=== PATIENT | female | born 1955 | race Caucasian/White ===

== ENCOUNTER 2018-01-09 09:53 | Inpatient (IN) | payer OTHER ==
--- NOTE | 2018-01-16 08:12 | HP ---
HISTORY OF PRESENT ILLNESS: The patient is a 62-year-old female with a long history of problems with both knees, left greater than right. She has developed progressive degenerative arthritis of the le ft knee, which has persisted despite rest, restriction of activities, anti-inflammatory medications, cortisone injections, attempted weight loss and lifestyle adjustments. The pain is now interfering w ith day-to-day activities including walking, getting dressed and sleeping. PAST MEDICAL HISTORY: The patient underwent unic[place]partmental [place] ago, is suffering from problems and is developing degenerative arthritis in the latera l compartment and will probably require revision in the future, but her left knee is bothering her mo re now. She also has a history of anxiety, arthritis, high cholesterol, chronic pain, depression, hi gh blood pressure, thyroid disease. CURRENT MEDICATIONS: Include paroxetine, benazepril, atenolol, Lasix, meloxicam, metformin, levothyr oxine, lansoprazole, quetiapine. ALLERGIES: She has no known allergies. FAMILY HISTORY/SOCIAL HISTORY/REVIEW OF SYSTEMS: Otherwise unremarkable. PHYSICAL EXAMINATION: GENERAL: Reveals a healthy heavyset female. HEENT: Unremarkable. NECK: Supple. CHEST: Clear. HEART: Regular rate and rhythm. ABDOMEN: Soft, nontender. PELVIC/RECTAL/BREAST: Exams are deferred. EXTREMITIES: Pertinent findings are related to her knees. Examination of the left knee reveals no d efinite effusion. There is no distinct deformity. There is tenderness and crepitus over the medial joint line. Range of motion is 0-115 degrees. There is no instability. Neurovascular exam is intac t. Pulses are trace. There is a left antalgic gait. Neurovascular exam is intact. Examination of the right knee reveals no effusion, normal alignment. There is a healed medial incision. There is t enderness over the medial and especially the lateral joint lines. Range of motion is 0-115 degrees. There is no definite instability. Neurovascular exam is intact. LABORATORY AND X-RAY FINDINGS: X-rays of the left knee reveal severe tricompartmental degenerative a rthritis with bone on bone collapse medially. X-rays of the right knee reveal medial unicompartmental knee replacement in satisfactory alignment, b ut there is significant narrowing laterally. IMPRESSION: 1. Degenerative arthritis, left knee. 2. Status post unicompartmental knee replacement, right knee, with progression of degenerative arthr itis, lateral compartment. 3. History of hypertension. 4. History of thyroid replacement. 5. History of obesity. PLAN: Left total knee replacement. She will probably eventually require revision right total knee r eplacement. The nature of the surgery, length of recovery, and potential complications such as infec tion, loss of motion, incomplete relief, delayed wound healing, neurovascular injury, thromboembolic phenomena, possible transfusion, and need for revision have been discussed in detail.
[2018-01-20] MEDS ORDERED: CEFAZOLIN 3 GM, Admixture Fee 1 EACH in Sodium Chloride 0.9% 100 ML IVPB SCH (06:15)
[2018-01-20] MEDS ORDERED: Lidocaine 1% (PF) 30 ML VIAL ONE (06:30)
[2018-01-20] MEDS ORDERED: Midazolam HCl 2 mg/2 ml Vial ONE (06:30)
[2018-01-20] MEDS ORDERED: Fentanyl 100 MCG/2 ML VIAL ONE ×2 (06:30→09:20)
[2018-01-20] MEDS ORDERED: Sodium Chloride 0.9% 100 ML ONE (06:30)
[2018-01-20] MEDS ORDERED: Bupivacaine/Epinephrine 0.25% 30 ML VIAL ONE (06:45)
[2018-01-20] MEDS ORDERED: Albuterol Sulfate 2.5 mg/3 ml Neb ONE (06:48)
[2018-01-20] MEDS ORDERED: Ropivacaine HCl/PF 250 ML in Premix Bag 1 BAG NERVE BLCK SCH (07:13)
[2018-01-20] MEDS ORDERED: traMADol HCl 50 MG TAB PO PRN ×3 (07:13→09:56)
[2018-01-20] MEDS ORDERED: Ondansetron PF 4 MG/2 ML Vial IVP PRN ×2 (07:13→09:56)
[2018-01-20] MEDS ORDERED: Zolpidem Tartrate 5 MG TAB PO PRN ×2 (07:13→09:56)
[2018-01-20] MEDS ORDERED: HYDROcodone/Acetaminophen 10/325 mg Tablet PO PRN ×3 (07:13→09:56)
[2018-01-20] MEDS ORDERED: Promethazine HCl 25 MG/ML VIAL IM PRN ×2 (07:13→08:02)
[2018-01-20] MEDS ORDERED: Fentanyl 100 MCG/2 ML VIAL IV PRN (07:14)
[2018-01-20] MEDS ORDERED: Morphine 10 MG/ML VIAL ONE (07:48)
[2018-01-20] MEDS ORDERED: PACU-Morphine 4MG/ML VIAL SLOW IVP PRN (08:02)
[2018-01-20] MEDS ORDERED: Promethazine HCl 25 MG/ML VIAL SLOW IVP PRN ×2 (08:02→09:56)
[2018-01-20] MEDS ORDERED: Ondansetron HCl/PF 4 MG/2 ML Vial IVP PRN (08:02)
[2018-01-20] MEDS ORDERED: Tranexamic Acid 1,000 MG in Sodium Chloride 0.9% 100 ML IVPB SCH ×2 (09:15→09:56)
--- NOTE | 2018-01-20 09:47 | OP ---
DATE OF PROCEDURE: 01/20/2018 SURGEON: Gregorio Shafer M.D. MANAGER SKILLED: SEAN Mejía. ANESTHESIA: General plus adductor canal and sciatic nerve blocks. PREOPERATIVE DIAGNOSIS: Degenerative arthritis, left knee. POSTOPERATIVE DIAGNOSIS: Degenerative arthritis, left knee. PROCEDURES: Left total knee replacement with computer-assisted navigation with cemented Triathlon co mponents (#4 femoral component, #4 primary tibial baseplate with 11 mm CS plastic insert, and A29 all plastic patellar component). NARRATIVE REPORT: After satisfactory anesthesia was induced in supine position, sequential compressi on device was placed on the non-operative leg throughout the procedure. The left leg was then preppe d and draped in routine sterile fashion. The left leg was elevated, exsanguinated with Esmarch almendarez ge and the tourniquet inflated to 350 mmHg. A gently curved medial parapatellar incision was made an d carried down to subcutaneous tissues. Bleeding points controlled with Bovie cautery. Medial parap atellar arthrotomy was performed, patella dislocated laterally and portions of the fat pad were excis ed for exposure. There was marked degenerative arthritis of the knee, especially medially, with larg e areas of exposed bone. Meniscal remnants and osteophytes removed. Using the appropriate guides an d the Object[employer] pinless navigation system, the distal femoral and proximal tibial articular surfaces we re excised with an oscillating saw to accept the trial components. It was felt that #4 femoral compo nent and #4 tibial baseplate with 11 mm CS plastic insert gave appropriate size, fit, stability, and correction of the preoperative deformity. The patellar articular surface was excised to accept an al l plastic A29 patellar component. There was a good range of motion, good patellar tracking. The tri al components removed. The knee was copiously irrigated with pulsatile lavage and bony surfaces thor oughly cleaned and dried. The permanent components were then cemented in a single stage using 1 pack age of cement premixed with 1 gram of tobramycin powder. Excess cement was removed. There was again good fit and stability of the components. The wound was again copiously irrigated. The skin was in filtrated with 30 mL of 0.25% Marcaine with epinephrine. The medial retinaculum and quadriceps mecha nism was closed with interrupted #2 Vicryl and a running #2 Quill. Subcutaneous tissues were closed with a running 0 Quill suture and the skin closed with running subcuticular 3-0 Monoderm and SurgiSea l skin adhesive. A sterile bulky compressive dressing was applied. The tourniquet deflated after 73 minutes. The foot promptly pinked up. Sequential compression device was applied to the operated le g and she was awakened, taken to recovery room in stable condition. There were no apparent intraoper ative complications. The estimated blood loss was less than 100 mL.
[2018-01-20] MEDS ORDERED: diphenhydrAMINE 25 MG CAP PO PRN (09:56)
[2018-01-20] MEDS ORDERED: Fentanyl 100 MCG/2 ML VIAL SLOW IVP PRN ×2 (09:56)
[2018-01-20] MEDS ORDERED: Acetaminophen 325 MG TAB PO PRN (09:56)
[2018-01-20] MEDS ORDERED: CEFAZOLIN/Water 2 GM/20 ML SYRINGE SLOW IVP SCH (09:56)
--- NOTE | 2018-01-20 09:56 | RAD ---
LEFT KNEE TWO VIEWS: INDICATIONS: Postoperative evaluation. Total knee replacement. FINDINGS: There is no acute hardware complication with regard to left knee arthroplasty. Expected post procedu ral findings are seen within the soft tissues. IMPRESSION: Postoperative left knee without acute hardware complication. POS: [facility]
[2018-01-20 10:17] VITALS: BMI 46.9
[2018-01-20] MEDS: Albuterol Sulfate 2.5 mg/0.5 ml Neb NEB SCH (10:33)
[2018-01-20] MEDS ORDERED: PARoxetine 20 MG TAB PO SCH (11:00)
[2018-01-20] MEDS ORDERED: Levothyroxine Sodium 125 MCG TAB PO SCH (11:00)
[2018-01-20] MEDS ORDERED: Aspirin 81 mg Enteric Coated Tablet PO SCH (11:00)
[2018-01-20] MEDS ORDERED: Atenolol 50 MG TAB PO SCH (11:00)
[2018-01-20] MEDS: Furosemide 20 MG TAB PO SCH ×3 (11:25→21:01)
[2018-01-20] MEDS: Sodium Chloride 0.9% 1,000 ML IV SCH ×2 (11:34→11:35)
[2018-01-20] MEDS: Ketorolac Tromethamine 30 MG/ML VIAL IVP SCH ×3 (11:34→23:47)
[2018-01-20] MEDS ORDERED: Bupivacaine 0.25% HCL 30 ML VIAL ONE (13:42)
[2018-01-20] MEDS ORDERED: Ropivacaine 0.5% HCl/PF (150 MG/30 ML VIAL) ONE (13:42)
[2018-01-20] MEDS: HYDROcodone/Acetaminophen 10/325 mg Tablet PO PRN ×2 (13:53→21:08)
[2018-01-20] MEDS ORDERED: Ketorolac Tromethamine 30 MG/ML VIAL IVP SCH (14:00)
[2018-01-20] MEDS ORDERED: Ondansetron PF 4 MG/2 ML Vial ONE (14:55)
[2018-01-20] MEDS ORDERED: Lidocaine 1% PF 5 ML VIAL ONE (14:55)
[2018-01-20] MEDS ORDERED: ePHEDrine/0.9% NaCl/PF SYRINGE 50 mg/10 ml ONE (14:55)
[2018-01-20] MEDS ORDERED: PROPOFOL 200 MG/20 ML VIAL ONE (14:55)
[2018-01-20] MEDS ORDERED: metFORMIN 500 MG TAB PO SCH (17:00)
[2018-01-20] MEDS: CEFAZOLIN 3 GM, Admixture Fee 1 EACH in Sodium Chloride 0.9% 100 ML IVPB SCH ×2 (17:18→23:47)
--- NOTE | 2018-01-20 17:48 | PDOC.PN ---
- Subjective Encounter Start Date: 01/20/18 Encounter Start Time: 15:00 Subjective: pt up in bed no complains - Objective Vital Signs & Weight: Vital Signs (12 hours) Temp Pulse Resp BP Pulse Ox 01/20/18 14:25 98.6 F 71 16 129/53 L 99 01/20/18 11:25 98.5 F 65 16 133/78 99 01/20/18 11:24 69 01/20/18 09:55 98.3 F 69 16 147/66 H 94 L Weight Weight 282 lb I&O: 01/19/18 01/20/18 01/21/18 06:59 06:59 06:59 Intake Total 1640 Output Total 550 Balance 1090 Phys Exam - Physical Examination Neck: no nodes, no JVD, supple, full ROM Respiratory: no wheezing, no rales, no rhonchi, wheezing present, clear to auscultation bilateral Cardiovascular: RRR, no significant murmur, no rub, gallop, irregular Gastrointestinal: soft, non-tender, no distention, positive bowel sounds Musculoskeletal: no edema, pulses present, edema present left knee cassidy wrap Dx/Plan (1) Hypothyroid Code(s): E03.9 - HYPOTHYROIDISM, UNSPECIFIED Status: Acute (2) Depression Code(s): F32.9 - MAJOR DEPRESSIVE DISORDER, SINGLE EPISODE, UNSPECIFIED Status : Acute (3) HTN (hypertension) Code(s): I10 - ESSENTIAL (PRIMARY) HYPERTENSION Status: Acute - Plan pt states she takes metformin for weight loss not for DM -: will continue home medication * . Review of Systems - Review of Systems Respiratory: negative: Cough, Dry, Shortness of Breath, Hemoptysis, SOB with Excertion, Pleuritic Pain, Sputum, Wheezing Cardiovascular: negative: chest pain, palpitations, orthopnea, paroxysmal nocturnal dyspnea, edema, light headedness, other Gastrointestinal: negative: Nausea, Vomiting, Abdominal Pain, Diarrhea, Constipation, Melena, Hematochezia, Other Genitourinary: negative: Dysuria, Frequency, Incontinence, Hematuria, Retention , Other - Medications/Allergies Allergies/Adverse Reactions: Allergies Allergy/AdvReac Type Severity Reaction Status Date / Time No Known Allergies Allergy Verified 01/09/18 12:54 Medications: Current Medications Acetaminophen (Tylenol) 650 mg PO Q4H PRN PRN Reason: FIERRO/ T > 101F; Mild Pain (1-3) Hydrocodone Bitart/Acetaminophen ([place] 10/325) 1 tab PO Q4H PRN PRN Reason: Pain (1-3) Hydrocodone Bitart/Acetaminophen ([place] 10/325) 2 tab PO Q4H PRN PRN Reason: PAIN (4-6) Last Admin: 01/20/18 13:53 Dose: 2 tab Albuterol Sulfate (Ventolin) 2.5 mg NEB NOW [facility] Stop: 01/21/18 10:00 Last Admin: 01/20/18 10:33 Dose: Not Given Aspirin (Ecotrin) 81 mg PO BID [facility] Atenolol (Tenormin) 50 mg PO QAM [facility] Benazepril HCl (Lotensin) 20 mg PO QAM [facility] Diphenhydramine HCl (Benadryl) 25 mg PO Q6H PRN PRN Reason: Itching Fentanyl (Sublimaze) 50 mcg IV Q1H PRN PRN Reason: BT PAIN Ferrous Gluconate (Fergon) 324 mg PO BID-[facility] Furosemide (Lasix) 20 mg PO BID [facility] Ropivacaine 250 ml/ Device 250 mls @ 0 mls/hr NERVE BLCK INF [facility] Sodium Chloride (Normal Saline 0.9%) 1,000 mls @ 100 mls/hr IV .Q10H [facility] Last Admin: 01/20/18 11:35 Dose: Not Given Vancomycin HCl 2 gm/ Sodium (Chloride) 500 mls @ 250 mls/hr IVPB 2000 [facility] Stop: 01/20/18 21:59 Cefazolin Sodium 3 gm/Miscellaneous Medication 1 each/ Sodium Chloride 100 mls @ 200 mls/hr IVPB 0700,1500,2300 [facility] Stop: 01/20/18 23:29 Last Admin: 01/20/18 17:18 Dose: 100 mls Iron/Minerals/Multivitamins (Theragran M) 1 tab PO DAILY [facility] Ketorolac Tromethamine (Toradol) 30 mg IVP Q6HR [facility] Stop: 01/22/18 06:01 Last Admin: 01/20/18 17:16 Dose: 30 mg Levothyroxine Sodium (Synthroid) 125 mcg PO 0600 [facility] Metformin HCl (Glucophage) 500 mg PO QPM-[facility] Last Admin: 01/20/18 17:16 Dose: 500 mg Ondansetron HCl (Zofran) 4 mg IVP Q6H PRN PRN Reason: Nausea/Vomiting Pantoprazole Sodium (Protonix) 40 mg PO HS [facility] Paroxetine HCl (Paxil) 40 mg PO QAM [facility] Promethazine HCl (Phenergan) 12.5 mg IM Q4H PRN PRN Reason: Nausea Promethazine HCl (Phenergan) 12.5 mg SLOW IVP Q4H PRN PRN Reason: Nausea/Vomiting Quetiapine Fumarate (Seroquel Xr) 50 mg PO HS [facility] Senna/Docusate Sodium (Senokot S) 2 tab PO BID [facility] Sodium Chloride (Flush - Normal Saline) 10 ml IVF PRN PRN PRN Reason: Saline Flush Tramadol HCl (Ultram) 50 mg PO Q6H PRN PRN Reason: Mild Pain (1-3) Tramadol HCl (Ultram) 100 mg PO Q6H PRN PRN Reason: Moderate Pain 4-6 Zolpidem Tartrate (Ambien) 5 mg PO HSPRN PRN PRN Reason: Insomnia
[2018-01-20] MEDS ORDERED: QUEtiapine Fumarate ER 50 MG TAB PO SCH (21:00)
[2018-01-20] MEDS: Aspirin 81 mg Enteric Coated Tablet PO SCH (21:01)
[2018-01-21] MEDS: Sodium Chloride 0.9% 1,000 ML IV SCH ×2 (02:33→12:52)
[2018-01-21 05:32] LABS: Hemoglobin 12.8 g/dL (12.0-16.0); Mean Corpuscular HGB CONC 31.5 g/dL (32.0-36.0); Mean Corpuscular Volume 92.1 fL (78.0-98.0); Platelet Count 160 thou/uL (130-400); Red Blood Cell (RBC) Count 4.42 mill/uL (4.20-5.40); White Blood Cell (WBC) Count 8.4 thou/uL (4.8-10.8)
[2018-01-21] MEDS: Ketorolac Tromethamine 30 MG/ML VIAL IVP SCH ×2 (05:39→12:50)
[2018-01-21] MEDS: HYDROcodone/Acetaminophen 10/325 mg Tablet PO PRN ×3 (05:54→13:30)
[2018-01-21] MEDS ORDERED: Levothyroxine Sodium 125 MCG TAB PO SCH (06:00)
[2018-01-21] MEDS: Albuterol Sulfate 2.5 mg/0.5 ml Neb NEB SCH (07:42)
[2018-01-21] MEDS ORDERED: Ferrous Gluconate 324 MG TAB PO SCH (08:00)
[2018-01-21] MEDS: Furosemide 20 MG TAB PO SCH (08:23)
[2018-01-21] MEDS: Aspirin 81 mg Enteric Coated Tablet PO SCH (08:23)
[2018-01-21] MEDS ORDERED: Atenolol 50 MG TAB PO SCH (09:00)
[2018-01-21] MEDS ORDERED: Multivitamin W/ Minerals 1 TAB PO SCH (09:00)
[2018-01-21] MEDS ORDERED: Senokot S 8.6-50 MG TAB PO SCH (09:00)
[2018-01-21] MEDS ORDERED: PARoxetine 20 MG TAB PO SCH (09:00)
[2018-01-21] MEDS ORDERED: NICOTINE POLACRILEX 4 MG SL SCH (09:00)
[2018-01-21] MEDS ORDERED: Ropivacaine 0.2% 550 ML 550 ML NERVE BLCK SCH (10:42)
[2018-01-21 12:47] VITALS: BP 148/82; TEMP 98.4
== END 2018-01-21 13:38 | disposition home or self-care (01) | DRG 470 ==
LOC: SURG A 01-20 05:26 → SJJU 01-20 10:03
PROVIDERS: ADMIT Orthopaedic Surgery; ATTEND Orthopaedic Surgery
PROC: 0SRD0J9 Replacement of Left Knee Joint with Synthetic Substitute, Cemented, Open Approach (ICD-10-PCS; principal; 2018-01-20)
DX: M17.12 Unilateral primary osteoarthritis, left knee (principal); Z68.42 Body mass index [BMI] 45.0-49.9, adult; I10 Essential (primary) hypertension; E03.9 Hypothyroidism, unspecified; F32.9 Major depressive disorder, single episode, unspecified; E66.9 Obesity, unspecified
CPT/HCPCS: 36415; 85027; 86850; 86900; 86901; A4306; C1713; C1776; G8978-GP-CK; G8979-GP-CI; J0690; J1885; J2001; J2250; J2270; J2405; J2704; J2795; J3010; J3370; J7050; J7611; S0020

== ENCOUNTER 2018-01-09 12:24 | Outpatient (CLI) | payer OTHER ==
[2018-01-09 14:32] LABS: Bilirubin Negative (Negative); Blood, Urine Negative (Negative); Clarity CLEAR (Clear); Glucose, Urine (Dipstick) Negative (Negative); Leukocyte Small (Negative); Nitrite Negative (Negative); Protein, Urine (Dipstick) Negative (Neg-Trace); Specific Gravity, Urine 1.005 (1.002-1.036); Urobilinogen 0.2 mg/dL (0.2-1.0)
[2018-01-09 14:37] LABS: #Basophils 0.1 thou/uL (0.0-0.2); #Eosinphils 0.2 thou/uL (0.0-0.7); #Lymphocytes 2.2 thou/uL (1.20-3.40); #Monocytes 0.7 thou/uL (0.11-0.59); #Neutrophils 8.7 thou/uL (1.40-6.50); %Basophils 0.7 % (0.0-1.0); %Eosinophils 1.9 % (0.0-10.0); %Lymphocytes 18.7 % (21.0-51.0); %Neutrophils 72.8 % (42.0-75.0); Hemoglobin 15.3 g/dL (12.0-16.0); Mean Corpuscular HGB CONC 31.6 g/dL (32.0-36.0); Mean Corpuscular Volume 91.9 fL (78.0-98.0); Mean Platelet Volume 8.6 fL (7.4-10.4); Platelet Count 256 thou/uL (130-400); RBC Distribution Width 13.2 % (11.5-14.5); Red Blood Cell (RBC) Count 5.26 mill/uL (4.20-5.40); White Blood Cell (WBC) Count 11.9 thou/uL (4.8-10.8)
[2018-01-09 14:40] LABS: INR-International Normal Ratio 0.9; PTT 29.1 SEC (22.9-36.1); Prothrombin Time 12.5 SEC (12.0-14.7)
[2018-01-09 14:41] LABS: RBC/HPF None Seen HPF (0-3); Squamous Epithelial 0-3 HPF (0-3); WBC/HPF 0-3 HPF (0-3)
[2018-01-09 14:42] LABS: Bacteria/HPF None Seen HPF (None Seen); Hyaline Casts/LPF NONE SEEN LPF (0-3 Hyaline)
[2018-01-09 14:58] LABS: Anion Gap 10 mmol/L (10-20); BUN (Urea Nitrogen) 15 mg/dL (9.8-20.1); Calc. Creatinine Clearance 0 mL/min (70-130); Calcium 9.9 mg/dL (7.8-10.44); Carbon Dioxide 32 mmol/L (22-29); Chloride 103 mmol/L (98-107); Estimated GFR-MDRD 66; Glucose 108 mg/dL (70-105); Potassium 3.6 mmol/L (3.5-5.1); Sodium 141 mmol/L (136-145)
--- NOTE | 2018-01-09 17:24 | EKG ---
Test Reason : Blood Pressure : / mmHG Vent. Rate : 059 BPM Atrial Rate : 059 BPM P-R Int : 170 ms QRS Dur : 094 ms QT Int : 464 ms P-R-T Axes : 049 058 031 degrees QTc Int : 459 ms Sinus bradycardia WNL No previous ECGs available Confirmed by DR. Keny ROTHMAN ([id number]) on 01/09/2018 5:23:55 PM Referred By: NATALIYA Confirmed By:DR. Keny ROTHMAN
== END 2018-01-09 12:25 | disposition home or self-care (01) ==
LOC: LABBT 12:24
PROVIDERS: ATTEND Orthopaedic Surgery
DX: Z01.818 Encounter for other preprocedural examination (principal); M17.0 Bilateral primary osteoarthritis of knee
CPT/HCPCS: 80048; 81001; 85025; 85610; 85730; 87081; 87086; 93005; 93010

== ENCOUNTER 2018-04-22 11:00 | Inpatient (IN) | payer MEDICARE ==
--- NOTE | 2018-04-24 09:36 | HP ---
HISTORY OF PRESENT ILLNESS: The patient is a 62-year-old female, who underwent an unicompartmental and medial compartment placement in the right knee in [place] approximately 10 years ago. She initially had good relief, but over the past years, noticed progressive pain despite rest and restriction of activities and use of anti-inflammatory medications. The pain is anterior day-to-day activities including walking, getting dressed, and sleeping. PAST MEDICAL HISTORY: Please see the old chart. The patient underwent left total knee replacement 3 months ago with good results, but continues to have problems with right knee. She has history of high blood pressure, thyroid disease. CURRENT MEDICATIONS: Include paroxetine, benazepril, atenolol, Lasix, meloxicam, metformin, levothyroxine, lansoprazole, quetiapine. ALLERGIES: SHE HAS NO KNOWN ALLERGIES. FAMILY HISTORY: Otherwise unremarkable. SOCIAL HISTORY: Otherwise unremarkable. REVIEW OF SYSTEMS: Otherwise unremarkable. PHYSICAL EXAMINATION: GENERAL: Reveals a healthy heavy-set female. HEENT: Unremarkable. NECK: Supple. CHEST: Clear. HEART: Rate and rhythm. ABDOMEN: Soft, nontender. PELVIC: Deferred. RECTAL: Deferred. BREASTS: Deferred. EXTREMITIES: Pertinent findings of the right knee. There is a trace effusion. There is moderate varus. There is a healed medial incision. There is tenderness over the medial joint line and lateral joint line. There is no instability. Range of motion is 5 to 105 degrees. There is good capillary refill. There is a right antalgic gait. DIAGNOSTIC STUDIES: X-rays of the right knee reveals previous unicompartmental and placement of the medial compartment. There is a significant degenerative arthritis of the lateral compartment as well. There is no definite evidence of loosening. IMPRESSION: 1. Status post unicompartmental knee replacement of right knee with progressive degenerative arthritis, lateral compartment. 2. Status post left total knee replacement. 3. History of hypertension. 4. History of depression. PLAN: Right total knee revision with conversion of unicompartmental to a total knee replacement. The nature of the surgery, length of recovery, and potential complications such as infection, loss of motion, incomplete relief, delayed wound healing, neurovascular injury, thromboembolic phenomena, pain, possible transfusion, and need for revision have been discussed in detail. Job ID: [id number]
[2018-04-24 11:22] VITALS: BMI 43.7
[2018-04-28] MEDS ORDERED: Sodium Chloride 0.9% 100 ML ONE (07:08)
[2018-04-28] MEDS ORDERED: Tranexamic Acid 1,000 MG/10 ML VIAL ONE ×2 (07:08→11:47)
[2018-04-28] MEDS ORDERED: Vancomycin HCl 1.5 GM in Sodium Chloride 0.9% 250 ML 300 ML IVPB SCH ×2 (07:15→20:00)
[2018-04-28] MEDS ORDERED: Midazolam HCl 2 mg/2 ml Vial ONE (08:13)
[2018-04-28] MEDS ORDERED: Fentanyl 100 MCG/2 ML VIAL ONE ×2 (08:13→11:47)
[2018-04-28] MEDS ORDERED: Ondansetron PF 4 MG/2 ML Vial IVP PRN ×2 (09:20→13:14)
[2018-04-28] MEDS ORDERED: traMADol HCl 50 MG TAB PO PRN ×3 (09:20→13:14)
[2018-04-28] MEDS ORDERED: Promethazine HCl 25 MG/ML VIAL IM PRN ×2 (09:20→11:42)
[2018-04-28] MEDS ORDERED: Ropivacaine HCl/PF 250 ML in Premix Bag 1 BAG NERVE BLCK SCH (09:20)
[2018-04-28] MEDS ORDERED: Zolpidem Tartrate 5 MG TAB PO PRN ×2 (09:20→13:14)
[2018-04-28] MEDS ORDERED: Fentanyl 100 MCG/2 ML VIAL SLOW IVP PRN ×3 (09:21→13:14)
[2018-04-28] MEDS ORDERED: Bupivacaine HCl 0.5%/Epinephrine 1:200,000/PF 30 ml Vial ONE (09:57)
[2018-04-28] MEDS ORDERED: Ropivacaine 0.2% HCl/PF (40 MG/20 ML VIAL) ONE (11:24)
[2018-04-28] MEDS ORDERED: Ropivacaine 0.5% HCl/PF (150 MG/30 ML VIAL) ONE (11:24)
[2018-04-28] MEDS ORDERED: Ondansetron HCl/PF 4 MG/2 ML Vial IVP PRN (11:42)
[2018-04-28] MEDS ORDERED: Promethazine HCl 25 MG/ML VIAL SLOW IVP PRN ×2 (11:42→13:14)
[2018-04-28] MEDS ORDERED: ePHEDrine 50 MG/ML VIAL ONE (11:47)
[2018-04-28] MEDS ORDERED: PROPOFOL 200 MG/20 ML VIAL ONE (11:47)
[2018-04-28] MEDS ORDERED: Ondansetron PF 4 MG/2 ML Vial ONE (11:47)
[2018-04-28] MEDS ORDERED: Lidocaine 1% PF 5 ML VIAL ONE (11:47)
--- NOTE | 2018-04-28 12:39 | OP ---
DATE OF PROCEDURE: 04/28/2018 INVENTORY AUDITOR: Jabari Guardado PA-C ANESTHESIA: General plus adductor canal and sciatic nerve blocks. PREOPERATIVE DIAGNOSIS: Failed unicompartmental knee replacement, right knee. POSTOPERATIVE DIAGNOSIS: Failed unicompartmental knee replacement, right knee. PROCEDURES PERFORMED: Right total knee revision with conversion of unicompartmental knee replacement to total knee replacement with computer-assisted navigation and cemented [place] triathlon components (#4 primary femoral component, #4 universal tibial base plate with 19 mm CS plastic insert, and all plastic A29 patellar component). DESCRIPTION OF PROCEDURE: After satisfactory anesthesia was induced in supine position, sequential compression device was placed on the nonoperative leg throughout the procedure. The patient's right leg was then prepped and draped in routine sterile fashion. The right leg was elevated and exsanguinated with an Esmarch bandage and the tourniquet inflated to 350 mmHg. A curved medial parapatellar incision was made incorporating the previous incision. This was carried down through the subcutaneous tissues and full-thickness flaps were developed. Bleeding points were controlled with Bovie cautery. Medial parapatellar arthrotomy was performed, and this was carried laterally. No clinical signs of infection by culture, and Gram stain was obtained. There was abundant synovitis and marked degenerative arthritis of the patellofemoral joint and lateral compartment. were not loose. Using the distractor pinless navigation system and the appropriate guides, the distal femoral and proximal tibial articular surfaces were excised with an oscillating saw to accept the trial components. This was felt that #4 femoral component, with #4 primary tibial base plate, with 19 mm CS plastic insert gave appropriate size, fit, and stability. The patellar articular surface was excised to accept all plastic A29 patellar component. There was good patellar tracking. The trial components were removed. The knee was copiously irrigated with pulsatile lavage and bony surfaces thoroughly cleaned and dried. The permanent components were then cemented in a single stage using one pack of cement premixed with 1 g of tobramycin powder. Excess cement was removed. There was again good fit and stability of the components. The knee was then copiously irrigated. The skin was infiltrated with 30 mL of 0.25% Marcaine with epinephrine. The medial retinaculum and quadriceps mechanism were closed with interrupted #2 Vicryl and a running #2 Quill. Subcutaneous tissues were closed with interrupted #2 Vicryl and a running 0 Quill suture. Skin was closed with running subcuticular 3-0 Monoderm and SurgiSeal skin adhesive. Sterile bulky compressive dressing was applied and the tourniquet deflated after approximately 97 minutes. The foot promptly pinked up. A sequential compression device was placed on the operative leg and she was awakened, taken to Recovery Room in stable condition. There were no apparent intraoperative complications. The estimated blood loss was less than 100 mL. Job ID: [id number]
[2018-04-28] MEDS ORDERED: HYDROcodone/Acetaminophen 10/325 mg Tablet PO PRN ×2 (13:14)
[2018-04-28] MEDS ORDERED: Tranexamic Acid 1,000 MG in Sodium Chloride 0.9% 100 ML IVPB SCH (13:14)
[2018-04-28] MEDS ORDERED: Ketorolac Tromethamine 30 MG/ML VIAL IVP SCH (13:14)
[2018-04-28] MEDS ORDERED: Acetaminophen 325 MG TAB PO PRN (13:14)
[2018-04-28] MEDS ORDERED: diphenhydrAMINE 25 MG CAP PO PRN (13:14)
[2018-04-28] MEDS: Ketorolac Tromethamine 30 MG/ML VIAL IVP SCH ×2 (14:15→18:14)
--- NOTE | 2018-04-28 14:38 | RAD ---
TWO VIEWS RIGHT KNEE: DTE: 04/28/2018. HISTORY: Postoperative evaluation. FINDINGS: No postsurgical changes related to a right total knee prosthesis. No hardware complication is seen. There is no fracture or dislocation. Subcutaneous emphysema and edema are seen about the knee relat ed to recent postsurgical change. IMPRESSION: Postoperative changes related to right total knee replacement. POS: [facility]
[2018-04-28] MEDS: Sodium Chloride 0.9% 1,000 ML IV SCH (14:44)
[2018-04-28] MEDS: HYDROcodone/Acetaminophen 10/325 mg Tablet PO PRN (16:41)
[2018-04-28] MEDS: CEFAZOLIN 2 GM in Premix Bag 1 BAG IVPB SCH (16:45)
[2018-04-28] MEDS: Aspirin 81 mg Enteric Coated Tablet PO SCH (20:17)
[2018-04-28] MEDS: Furosemide 20 MG TAB PO SCH (20:17)
[2018-04-28] MEDS: Ferrous Gluconate 324 MG TAB PO SCH (20:18)
[2018-04-28] MEDS ORDERED: QUETIAPINE FUMARATE 50 MG PO SCH (21:00)
[2018-04-28] MEDS ORDERED: metFORMIN 500 MG TAB PO SCH (21:00)
[2018-04-29] MEDS: HYDROcodone/Acetaminophen 10/325 mg Tablet PO PRN ×3 (01:01→12:04)
[2018-04-29] MEDS: Ketorolac Tromethamine 30 MG/ML VIAL IVP SCH ×3 (01:01→12:08)
[2018-04-29] MEDS: Sodium Chloride 0.9% 1,000 ML IV SCH ×2 (01:02→14:55)
[2018-04-29] MEDS: CEFAZOLIN 2 GM in Premix Bag 1 BAG IVPB SCH (01:02)
[2018-04-29 05:57] LABS: Hemoglobin 13.2 g/dL (12.0-16.0); Mean Corpuscular HGB CONC 32.5 g/dL (32.0-36.0); Mean Corpuscular Hemoglobin 28.9 pg (27.0-31.0); Mean Platelet Volume 8.8 fL (7.4-10.4); Platelet Count 163 thou/uL (130-400); RBC Distribution Width 13.3 % (11.5-14.5); Red Blood Cell (RBC) Count 4.56 mill/uL (4.20-5.40); White Blood Cell (WBC) Count 10.4 thou/uL (4.8-10.8)
[2018-04-29] MEDS: Ferrous Gluconate 324 MG TAB PO SCH (08:54)
[2018-04-29] MEDS: Aspirin 81 mg Enteric Coated Tablet PO SCH (08:54)
[2018-04-29] MEDS: Furosemide 20 MG TAB PO SCH (08:55)
[2018-04-29] MEDS ORDERED: PARoxetine 20 MG TAB PO SCH (09:00)
[2018-04-29] MEDS ORDERED: Senokot S 8.6-50 MG TAB PO SCH (09:00)
[2018-04-29] MEDS ORDERED: Levothyroxine Sodium 125 MCG TAB PO SCH (09:00)
[2018-04-29] MEDS ORDERED: Multivitamin W/ Minerals 1 TAB PO SCH (09:00)
[2018-04-29] MEDS ORDERED: Atenolol 50 MG TAB PO SCH (09:00)
[2018-04-29] MEDS ORDERED: Ropivacaine 0.2% 550 ML 550 ML NERVE BLCK SCH (11:06)
[2018-04-29 11:57] VITALS: BP 125/78; TEMP 98.4
[2018-04-29] MEDS: NICOTINE POLACRILEX 4 MG PO SCH (14:53)
[2018-04-30] MEDS ORDERED: Levothyroxine Sodium 125 MCG TAB PO SCH (09:00)
--- NOTE | 2018-04-30 10:50 | DIS ---
DATE OF ADMISSION: 04/28/2018 DATE OF DISCHARGE: 04/29/2018 ADMISSION DIAGNOSIS: End-stage tricompartmental osteoarthritis, right knee. DISCHARGE DIAGNOSIS: End-stage tricompartmental osteoarthritis, right knee. OPERATIVE PROCEDURE: Right total knee arthroplasty. CONSULTANTS: [facility] for acute postop pain management. DISCHARGE DISPOSITION: To home. BRIEF CLINICAL HISTORY: Mehreen is a 62-year-old white female, who was admitted to [facility], underwent the above elective procedure on date of admission without intra, guzman, or postop complication. Her hospital course was unremarkable as she had been a prior contralateral total joint patient in the past. At the time of discharge, the patient is afebrile. She is ambulatory without assistance, tolerating regular diet, and voiding without difficulty. Her incision is clean and closed without erythema, and she is neurovascularly intact in the involved extremities. DISCHARGE MEDICATIONS: Please see medication reconciliation form. We will be happy to see the patient on an as-needed basis between now and her next scheduled appointment in 2 to 3 weeks. CONDITION ON DISCHARGE: Stable. PROGNOSIS: Good. Job ID: [id number]
== END 2018-04-29 12:36 | disposition home or self-care (01) | DRG 468 ==
LOC: SURG A 04-28 06:41 → SJJU 04-28 13:15
PROVIDERS: ADMIT Orthopaedic Surgery; ATTEND Orthopaedic Surgery
PROC: 0SPC0JZ Removal of Synthetic Substitute from Right Knee Joint, Open Approach (ICD-10-PCS; principal; 2018-04-28)
PROC: 0SRC0J9 Replacement of Right Knee Joint with Synthetic Substitute, Cemented, Open Approach (ICD-10-PCS; 2018-04-28)
DX: T84.092A Other mechanical complication of internal right knee prosthesis, initial encounter (principal); I10 Essential (primary) hypertension; F32.9 Major depressive disorder, single episode, unspecified; M17.11 Unilateral primary osteoarthritis, right knee; Y83.1 Surgical operation with implant of artificial internal device as the cause of abnormal reaction of the patient, or of later complication, without mention of misadventure at the time of the procedure; Z96.652 Presence of left artificial knee joint; Z79.899 Other long term (current) drug therapy; Z79.84 Long term (current) use of oral hypoglycemic drugs
CPT/HCPCS: 36415; 85027; 86850; 86900; 86901; 87070; 87205; A4306; C1713; C1776; J0670; J1885; J2250; J2550; J2795; J3010; J3370; J7050

== ENCOUNTER 2018-04-24 00:49 | Outpatient (CLI) | payer MEDICARE ==
[2018-04-24 12:11] LABS: #Basophils 0.1 thou/uL (0.0-0.2); #Eosinphils 0.2 thou/uL (0.0-0.7); #Lymphocytes 2.3 thou/uL (1.20-3.40); #Monocytes 0.7 thou/uL (0.11-0.59); #Neutrophils 7.5 thou/uL (1.40-6.50); %Basophils 0.5 % (0.0-1.0); %Eosinophils 1.9 % (0.0-10.0); %Lymphocytes 21.1 % (21.0-51.0); %Monocytes 6.4 % (0.0-10.0); %Neutrophils 70.1 % (42.0-75.0); Hemoglobin 15.3 g/dL (12.0-16.0); Mean Corpuscular HGB CONC 32.5 g/dL (32.0-36.0); Mean Corpuscular Hemoglobin 28.6 pg (27.0-31.0); Mean Corpuscular Volume 88.2 fL (78.0-98.0); Mean Platelet Volume 8.7 fL (7.4-10.4); Platelet Count 276 thou/uL (130-400); RBC Distribution Width 13.4 % (11.5-14.5); Red Blood Cell (RBC) Count 5.35 mill/uL (4.20-5.40); White Blood Cell (WBC) Count 10.7 thou/uL (4.8-10.8)
[2018-04-24 12:26] LABS: Bilirubin Negative (Negative); Blood, Urine Negative (Negative); Clarity CLEAR (Clear); Glucose, Urine (Dipstick) Negative (Negative); Leukocyte Negative (Negative); Nitrite Negative (Negative); Protein, Urine (Dipstick) Negative (Neg-Trace); Specific Gravity, Urine 1.007 (1.002-1.036); Urobilinogen 0.2 mg/dL (0.2-1.0); pH, Urine 6.5 (5.0-9.0)
[2018-04-24 12:29] LABS: Anion Gap 16 mmol/L (10-20); BUN (Urea Nitrogen) 19 mg/dL (9.8-20.1); Calc. Creatinine Clearance 0 mL/min (70-130); Calcium 10.4 mg/dL (7.8-10.44); Carbon Dioxide 29 mmol/L (22-29); Chloride 99 mmol/L (98-107); Estimated GFR-MDRD 71; Glucose 90 mg/dL (70-105); Potassium 3.6 mmol/L (3.5-5.1); Sodium 140 mmol/L (136-145)
[2018-04-24 12:33] LABS: Bacteria/HPF 2+ HPF (None Seen); Hyaline Casts/LPF 0-3 HYALINE CAST LPF (0-3 Hyaline); RBC/HPF 0-3 HPF (0-3); Squamous Epithelial None Seen HPF (0-3); WBC/HPF None Seen HPF (0-3)
--- NOTE | 2018-04-25 07:06 | EKG ---
Test Reason : Blood Pressure : / mmHG Vent. Rate : 063 BPM Atrial Rate : 063 BPM P-R Int : 168 ms QRS Dur : 092 ms QT Int : 448 ms P-R-T Axes : 052 053 041 degrees QTc Int : 458 ms Normal sinus rhythm Normal ECG When compared with ECG of 09-JAN-2018 14:10, No significant change was found Confirmed by LAUREANO CHEN ([id number]) on 04/25/2018 7:06:01 AM Referred By: NATALIYA Confirmed By:LAUREANO CHEN
== END 2018-04-24 00:50 | disposition home or self-care (01) ==
LOC: LABBT 00:49
PROVIDERS: ATTEND Orthopaedic Surgery
DX: Z01.818 Encounter for other preprocedural examination (principal)
CPT/HCPCS: 80048; 81001; 85025; 85610; 86850; 86870; 86880; 86900; 86901; 87077; 87086; 87186; 93005; 93010

== ENCOUNTER 2018-05-09 09:12 | Day surgery (SDC) | payer MEDICARE ==
[2018-05-08 16:49] VITALS: BMI 44.1
[2018-05-09] MEDS ORDERED: Fentanyl 100 MCG/2 ML VIAL ONE (11:33)
[2018-05-09] MEDS ORDERED: Midazolam HCl 2 mg/2 ml Vial ONE (11:33)
[2018-05-09] MEDS ORDERED: Lidocaine 1% (PF) 30 ML VIAL ONE (11:33)
[2018-05-09] MEDS ORDERED: Neomycin-Polymyxin 1 ML AMP ONE (12:42)
[2018-05-09] MEDS ORDERED: Bupivacaine HCl 0.5%/Epinephrine 1:200,000/PF 30 ml Vial ONE (13:59)
[2018-05-09] MEDS ORDERED: PROPOFOL 200 MG/20 ML VIAL ONE (14:38)
--- NOTE | 2018-05-12 10:45 | OP ---
DATE OF PROCEDURE: 05/09/2018 PREOPERATIVE DIAGNOSIS: Hematoma traumatic to the right knee. POSTOPERATIVE DIAGNOSIS: Hematoma traumatic to the right knee. PROCEDURES PERFORMED: Revision of right knee polyethylene component only, irrigation of hematoma, repair of medial retinaculum, and wound closure. MULTI DISCIPLINED LANGUAGE ANALYST: Geo. BLOOD LOSS: About 200. SPECIMEN: None. DRAINS: None. COMPLICATION: None. IMPLANTS USED: [place] triathlon 4 x 19 CS polyethylene liner. DESCRIPTION OF PROCEDURE: The patient was taken to the operating room, where general anesthesia induced. Right leg was prepped and draped in usual sterile fashion. I did not use a tourniquet. I opened up the old incision, dissection was carried down to the arthrotomy. The arthrotomy was opened through the old sutures. There was a defect right at the medial border of the patella. There was a large hematoma in the wound with serosanguineous blood as well as hematoma, which was solid. I irrigated this out to remove the polyethylene liner, cleaned the gutters behind the back of the femur and the joint itself using pulsatile lavage irrigation. I then replaced a new polyethylene liner, repaired the retinaculum with #2 Vicryl and #2 Quill, subcu with 0 Quill, skin was closed with 2-0 Prolene. Sterile dressing was applied. POSTOPERATIVE PLAN: We will place the patient in knee immobilizer with No range of motion. Followup early next week. Job ID: [id number]
== END 2018-05-09 15:52 | disposition home or self-care (01) ==
LOC: SDC 09:12
PROVIDERS: ATTEND Orthopaedic Surgery
PROC: 0SPC09Z Removal of Liner from Right Knee Joint, Open Approach (ICD-10-PCS; principal; 2018-05-09)
PROC: 0SUV09Z Supplement Right Knee Joint, Tibial Surface with Liner, Open Approach (ICD-10-PCS; 2018-05-09)
DX: S80.01XA Contusion of right knee, initial encounter (principal); F41.9 Anxiety disorder, unspecified; M19.90 Unspecified osteoarthritis, unspecified site; E78.00 Pure hypercholesterolemia, unspecified; F32.9 Major depressive disorder, single episode, unspecified; I10 Essential (primary) hypertension; M81.0 Age-related osteoporosis without current pathological fracture; E07.9 Disorder of thyroid, unspecified; Z96.651 Presence of right artificial knee joint; Z79.82 Long term (current) use of aspirin; Z79.84 Long term (current) use of oral hypoglycemic drugs; Z79.899 Other long term (current) drug therapy
CPT/HCPCS: 87070; 87205; J0670; J2001; J2250; J2704; J3010; J3370; J7050

== ENCOUNTER 2018-06-13 14:30 | Emergency (ER) | payer MEDICARE ==
--- NOTE | 2018-06-13 15:26 | RAD ---
4 VIEWS RIGHT KNEE: Date: 06/13/18 COMPARISON: None. HISTORY: Right knee surgery in May 2018. Increased pain and swelling in the right knee. FINDINGS: Four views of the right knee shows moderate diffuse soft tissue swelling. Patient is status post righ t knee arthroplasty without perihardware lucency or fracture. No knee effusion is seen. IMPRESSION: Soft tissue swelling without underlying osseous abnormality. POS: [facility]
--- NOTE | 2018-06-13 15:45 | ULT ---
EXAM: Right lower extremity venous duplex ultrasound with color and spectral Doppler imaging: HISTORY: Right lower extremity swelling and edema following surgery COMPARISON: None FINDINGS: Exam performed from the groin to the ankle including the visualized greater saphenous, common femoral , superficial femoral, profunda femoral, popliteal, trifurcation, and posterior tibial veins. There is phasic flow with normal compressibility and normal augmentation at all examined levels. No evidence for intraluminal thrombus. IMPRESSION:: No evidence for deep venous thrombosis.
== END 2018-06-13 17:30 | disposition home or self-care (01) ==
LOC: ERS 14:30
DX: M96.840 Postprocedural hematoma of a musculoskeletal structure following a musculoskeletal system procedure (principal)